=== PATIENT | male | born 1990 | race Caucasian/White ===

== ENCOUNTER 2025-02-12 14:36 | Emergency (ER) | payer OTHER, SELFPAY ==
[2025-02-12 15:21] VITALS: BP 147/74; PULSE 50; RESP 16; TEMP 36.7; O2SAT 99
[2025-02-12 18:10] VITALS: BP 135/80; PULSE 66; O2SAT 100
--- NOTE | 2025-02-12 18:44 | ED_ITS ---
HPI - Extremity Injury (Lower) General Chief Complaint: Extremity Injury, Lower Stated Complaint: Rt foot pain Time Seen by Provider: 02/12/25 18:00 History of Present Illness HPI Narrative: 34-year-old gentleman presents with left foot pain specifically the heel region after day 2 of hiking noticed that there was significant pain to that area and stopped hiking. He has taken paracetomol for pain but it has not helped much. He states this happened about 2 years ago same area of the foot for which he will at at rest and it resolved on its own. He denies any chest pain, shortness of breath, or any inciting event specific to the height that resulted in this. Other than what is stated 14 point review of system is negative. Related Data Allergies Allergy/AdvReac Type Severity Reaction Status Date / Time No Known Drug Allergies Allergy Verified 02/12/25 15:22 Review of Systems Review of Systems ROS Unobtainable: All systems reviewed & are unremarkable except as noted in HPI and below Exam Narrative Exam Narrative: GENERAL: [34] year old patient appears stated age. Well-developed patient, in mild distress. HEAD: Atraumatic. Normocephalic. EYES: Pupils equal round and reactive. Extraocular motions intact. No scleral icterus. No injection or drainage. EXTREMITIES: L foot heel TTP but no obvious deformity redness warmth tenderness bleeding or foreign body seen. Motor sensory intact +2 dorsalis pedis +2 posterior tib cap refill less than 2 seconds. BACK: Nontender without deformity or crepitance. No flank tenderness. NEURO: AOx3. GCS 15. SKIN: No rash or erythema of visible areas Initial Vital Signs Initial Vital Signs: Vital Signs Temperature 98.0 F 02/12/25 15:21 Pulse Rate 50 L 02/12/25 15:21 Respiratory Rate 16 02/12/25 15:21 Blood Pressure 147/74 H 02/12/25 15:21 Pulse Oximetry 99 02/12/25 15:21 Oxygen Delivery Method Room Air 02/12/25 15:21 Course Vital Signs Vital signs: Vital Signs - 8 hr 02/12/25 15:21 02/12/25 18:10 Temperature 98.0 F Pulse Rate 50 L 66 Respiratory Rate 16 Blood Pressure 147/74 H 135/80 Pulse Oximetry 99 100 Oxygen Delivery Method Room Air Room Air MDM - Extremity Injury (Lower) MDM Narrative Medical decision making narrative: Vital signs, nurse triage note, medication list, previous ER visits, and all imaging studies reviewed. Patient refused x-rays at this time as he is visiting from [facility] and said he could not get it back in [place] in 10 days when he returns on the . Differential diagnosis includes fracture, sprain, a rthritis, heel spur, and plantar fasciitis. I have encouraged him to alternate Tylenol and ibuprofen for pain control, ice to affected area, and stretching exercises. Discharge Plan Departure Patient Disposition: Home Clinical Impression: Heel pain Qualifiers: Laterality: right Qualified Code(s): M79.671 - Pain in right foot Instructions: Calcaneal Spur Activity Restrictions/Additional Instructions: Return with new or worsening symptoms. Take Tylenol and/or ibuprofen for pain control. Ice to affected area. Stretching exercises as previously described. And please follow up with your family doctor in [place] when you return. Stand Alone Forms: Patient Portal/API
== END 2025-02-12 18:59 | disposition home or self-care (01) ==
PROVIDERS: Emergency Provider Family Medicine
DX: M79.671 Pain in right foot (principal)
CPT/HCPCS: 99281